=== PATIENT | female | born 1965 | race Caucasian/White ===

== ENCOUNTER 2024-06-10 06:19 | Day surgery (SDC) | payer OTHER ==
[2024-06-08 13:29] VITALS: BP 127/69
[~2024-06-10] VITALS: Ht 157.5 cm; Wt 54.4 kg
[~2024-06-10 06:19] MED LIST: ANASTROZOLE1 MG PO
[2024-06-10] MEDS ORDERED: CEFAZOLIN SODIUM 1,000 MG VIAL ONE (10:56)
== END 2024-06-10 20:00 | disposition home or self-care (01) ==
LOC: CIR.AMB 06:19
PROVIDERS: ATTEND Surgery
DX: D05.12 Intraductal carcinoma in situ of left breast (principal); R59.0 Localized enlarged lymph nodes; Z88.2 Allergy status to sulfonamides
CPT/HCPCS: 19301; 38525; A9541; L8699

== ENCOUNTER 2024-07-20 09:06 | Outpatient (CLI) | payer OTHER | END 2024-07-20 09:20 | disposition home or self-care (01) | LOC: SONOGRAMA 09:06 | PROVIDERS: ATTEND Obstetrics & Gynecology Gynecology | DX: D25.0 Submucous leiomyoma of uterus (principal) ==